=== PATIENT | male | born 1970 | race African-American/Black ===

== ENCOUNTER 2018-01-03 11:07 | Emergency (ER) | payer OTHER ==
[~2018-01-03] VITALS: Ht 180.3 cm; Wt 117.9 kg
[~2018-01-03 11:07] MED LIST: AMLODIPINE BESY10 MG; ATENOLOL PO; CLARITIN10 M2; COZAAR 50 MG TA50 M2; EPIPEN0.3 MG/0.3 IM; FAMOTIDINE PO; LISINOPRIL2.5 MG PO; NORCO 5-325 TA1 EACH PO; NORVASC 5 MG TAB5 MG PO; PRAVACHOL40 MG; PREDNISONE 10 M10 M1; PREDNISONE 20 M20 MG PO; TAMSULOSIN HCL0.4 M1 PO; TRAMADOL 50 MG50 MG; VIAGRA100 MG
[2018-01-03 11:12] VITALS: BP 176/81
[2018-01-03] MEDS ORDERED: PROAIR HFA8.5 GM INH (11:31)
[2018-01-03] MEDS ORDERED: POLYMYXIN B/TMP10 ML OPHTHALMIC (11:31)
[2018-01-03] MEDS ORDERED: AUGMENTIN 875-1 EACH PO (11:31)
== END 2018-01-03 11:40 | disposition home or self-care (01) ==
LOC: M.ERS 11:07
DX: H10.9 Unspecified conjunctivitis (principal); J98.8 Other specified respiratory disorders; I10 Essential (primary) hypertension; G47.30 Sleep apnea, unspecified

== ENCOUNTER 2021-01-24 17:08 | Emergency (ER) | payer OTHER ==
[~2021-01-24] VITALS: Ht 180.3 cm; Wt 104.3 kg
[~2021-01-24 17:08] MED LIST changes: +AUGMENTIN 875-1 EACH PO; +POLYMYXIN B/TMP10 ML OPHTHALMIC; +PROAIR HFA8.5 GM INH
[2021-01-24] MEDS ORDERED: LIPITOR10 MG PO (17:25)
[2021-01-24] MEDS ORDERED: PROPECIA1 MG (17:25)
[2021-01-24] MEDS ORDERED: VITAMIN D310 MC2 (17:26)
[2021-01-24] MEDS ORDERED: TRIAMCINOLONE A80 G2 TOP (17:30)
[2021-01-24] MEDS ORDERED: MEDROLDOSEPACK PO (17:30)
[2021-01-24 18:02] VITALS: BP 143/95
== END 2021-01-24 18:03 | disposition home or self-care (01) ==
LOC: M.ERS 17:08
DX: L23.7 Allergic contact dermatitis due to plants, except food (principal); I10 Essential (primary) hypertension; G47.30 Sleep apnea, unspecified; N40.0 Benign prostatic hyperplasia without lower urinary tract symptoms

== ENCOUNTER 2021-04-28 18:47 | Emergency (ER) | payer OTHER ==
[~2021-04-28] VITALS: Ht 180.3 cm; Wt 113.4 kg
[~2021-04-28 18:47] MED LIST changes: +LIPITOR10 MG PO; +MEDROLDOSEPACK PO; +PROPECIA1 MG; +TRIAMCINOLONE A80 G2 TOP; +VITAMIN D310 MC2
[2021-04-28 19:14] VITALS: BP 180/111
[2021-04-28] MEDS ORDERED: CHLORTHALIDONE25 MG PO (19:17)
[2021-04-28] MEDS ORDERED: PRAVACHOL40 MG PO (19:17)
[2021-04-28] MEDS ORDERED: SILDENAFIL20 MG PO (19:18)
[2021-04-28] MEDS ORDERED: MEDROLDOSEPACK PO (19:29)
[2021-04-28] MEDS ORDERED: APAP W/CODEINE1 TA2 PO (19:29)
[2021-04-28] MEDS ORDERED: FLEXERIL PO (19:29)
== END 2021-04-28 21:18 | disposition home or self-care (01) ==
LOC: M.ERS 18:47
DX: S16.1XXA Strain of muscle, fascia and tendon at neck level, initial encounter (principal); I10 Essential (primary) hypertension; Z79.899 Other long term (current) drug therapy; V89.2XXA Person injured in unspecified motor-vehicle accident, traffic, initial encounter; Y93.I9 Activity, other involving external motion; Y92.488 Other paved roadways as the place of occurrence of the external cause; Y99.8 Other external cause status